=== PATIENT | male | born 1980 | race Caucasian/White ===

== ENCOUNTER 2024-11-11 16:16 | Emergency (ER) | payer OTHER, SELFPAY ==
[2024-11-11 16:25] VITALS: BP 156/100; PULSE 66; RESP 16; TEMP 37; O2SAT 97; BMI 27.8
--- NOTE | 2024-11-11 17:22 | ED_ITS ---
HPI - Extremity Problem General Chief complaint: Extremity Problem,Nontraumatic Stated complaint: states ingrown toenail Time Seen by Provider: 11/11/24 17:14 Source: patient History of Present Illness HPI Narrative: Mr. Bronson is a pleasant 43-year-old male who denies any past medical history that presents to the emergency department for bilateral ingrown x times 30 years. His toes have been hurting him more recently and yesterday his left great toenail started bleeding after he picked it which prompted his ED arrival. He reports that he is currently unhoused, has been for about the last 1.5 years, he grew up in [place] but has been spending majority of time in [place] but recently came to and [place]. He reports taking as best care of his feet as he can however his great toenails have been getting smaller and smaller and more and more painful. He denies any fevers or chills, he does notice some swelling of his bilateral lower legs and there is faint bleeding/drainage from the left great toenail. He denies any drug use, smoking or alcohol use. Patient was noted to be quite sleepy and a bit slow to respond however he reports that not used any drugs but he is extremely exhausted and tired due to living on the streets and not getting good sleep. Related Data Previous Rx's Medication Instructions Recorded acyclovir 800 mg tablet 800 mg PO BID #10 tabs 11/20/24 Allergies Allergy/AdvReac Type Severity Reaction Status Date / Time Tramadol Allergy Unknown Uncoded 11/19/24 18:28 Review of Systems Review of Systems ROS Unobtainable: All systems reviewed & are unremarkable except as noted in HPI and below Patient History Smoking Status: Never smoker Exam Narrative Exam Narrative: GENERAL: 43 year old patient appears stated age. Overweight patient, in no acute distress. HEAD: Atraumatic. Normocephalic. EYES: Extraocular motions intact. No scleral icterus. No injection or drainage. CARDIOVASCULAR: Regular rate RESPIRATORY: ?Nonlabored respirations. ?Speaking in clear, full sentences. EXTREMITIES: 1+ BL LE edema. Strong DP and PT pulses bilaterally, brisk capillary refill on the toes. There is onychomycosis of the bilateral toenails, most prominent on the bilateral great toes. Patient has tenderness to palpation of the medial great toenail lines bilaterally. He has an open wound on the medial left great toenail line with some dried bloody drainage. Mild erythema of the left great toe, no streaking erythema, purulent drainage or increased warmth. NEURO: Alert and oriented, provides clear competent history. He does fr equently fall asleep during exam, immediately wakes up when asked a question. Moves all 4 extremities appropriately. SKIN: No rashes. Initial Vital Signs Initial Vital Signs: Vital Signs Temperature 98.6 F 11/11/24 16:25 Pulse Rate 66 11/11/24 16:25 Respiratory Rate 16 11/11/24 16:25 Blood Pressure 156/100 H 11/11/24 16:25 Pulse Oximetry 97 11/11/24 16:25 Oxygen Delivery Method Room Air 11/11/24 16:25 Course Orders Ordered: Discontinued Medications Acetaminophen (Acetaminophen 325 Mg Tablet) 650 mg PO NOW ONE Stop: 11/11/24 17:43 Last Admin: 11/11/24 17:49 Dose: 650 mg Documented By: JENIFER Bacitracin (Bacitracin Oint 0.9 Gm Pckt) 2 applic TOP NOW ONE Stop: 11/11/24 17:43 Last Admin: 11/11/24 17:51 Dose: 2 applic Documented By: JENIFER Cephalexin HCl (Cephalexin 250 Mg Capsule) 500 mg PO NOW ONE Stop: 11/11/24 17:43 Last Admin: 11/11/24 17:53 Dose: 500 mg Documented By: JENIFER Ibuprofen (Ibuprofen 400 Mg Tablet) 400 mg PO NOW ONE Stop: 11/11/24 17:43 Last Admin: 11/11/24 17:52 Dose: 400 mg Documented By: JENIFER Vital Signs Vital signs: Vital Signs - 8 hr 11/11/24 16:25 Temperature 98.6 F Pulse Rate 66 Respiratory Rate 16 Blood Pressure 156/100 H Pulse Oximetry 97 Oxygen Delivery Method Room Air MDM - Extremity (Nontraumatic) Medical Records Medical records narrative: None available MDM Narrative Medical decision making narrative: 43-year-old male who denies any past medical history that presents to the emergency department for bilateral ingrown x times 30 years. Differential diagnosis includes but is not limited to onychomycosis, ingrown toenail, paronychia, cellulitis, open wound, etc. On exam patient is in no acute distress, nontoxic appearing, vital signs appropriate except for mildly elevated blood pressure. He does have significant onychomycosis of both great toes with very small nails. He attempted to remove left ingrown toenail himself so he therefore has an open wound that has some mild surrounding erythema. Discussed with the patient that due the chronicity of his ingrown toenails, do not believe it is appropriate to perform surgical ingrown toenail removal at this time, in addition his great toenails are actually extremely small and thickened and I do not feel the removal would be very successful. I am concerned that due to the open wound in his left toe, he is very high risk for developing infection, therefore both great toes were cleansed extensively with Betadine, bacitracin applied nonadherent dressing supplied in addition we will treat patient with course Keflex, discussed proper wound care, provided him with supplies. Social work will meet with the patient for community resources. Patient verbalized understanding of all information and is agreeable to the discharge plan, all questions answered, ED return precautions discussed, he is stable for discharge. Discharge Plan Departure Patient Disposition: Home Clinical Impression: Chronic toe pain, bilateral, Open wound of left great toe without damage to nail, Onychomycosis Instructions: DI for Ingrown Toenail, DI for Infected Ingrown Toenail Activity Restrictions/Additional Instructions: Dear Mr. Bronson, Today you were evaluated for ingrown toenails and found to have fungal disease of the toenails. I would like you to apply antibiotic ointment daily to both great toenails and also complete full course of oral antibiotics as I am concerned for the open wound on your left great toe. It is very important to see a non destructive testing inspector for further management of your ingrown toenails. Please call to schedule an appointment with [facility] [phone]. To ease discomfort and swelling: * Wear open-toed shoes or sandals. They can ease pressure on your toenail. * Soak your foot in warm, soapy water for 15 minutes. Do this 3 to 4 times a day. * Use an antibiotic ointment on your toe after you dry your foot. * Lift the edge of the toenail to place cotton packing or antibiotic ointment. Change the packing each day. * Keep your foot raised above your heart when resting. * Avoid activity that causes pain. Avoid bumps or extra pressure on your toenail. Please take Ibuprofen (Motrin/Advil) or Acetaminophen (Tylenol) for pain. These are available over the counter. You may take Ibuprofen 600 mg every 8 hours with food for pain. You may also take Acetaminophen 650 mg every 4-6 hours for pain. Do not exceed 3000 mg of Tylenol a day as this can cause liver damage. Do not drink alcohol with either of these medications. Please follow up with your primary care doctor within the next 2-3 days for ER follow-up. (If you do not have a PCP you can call [phone]. ?to schedule an appointment with an [facility] Primary Care Provider) IF YOU DEVELOP ANY NEW OR WORSENING SYMPTOMS, RETURN TO THE ER! Please read the attached instructions, they highlight more specific treatments and interventions for you at home. Thank you for letting me participate in your care, Judith Baker PA-C Prescriptions: No Action acyclovir 800 mg tablet 800 mg PO BID Qty: 10 0RF Stand Alone Forms: Patient Portal/API/Survey
[2024-11-11] MEDS: ACETAMINOPHEN 325 MG TABLET 650 MG PO (17:49)
[2024-11-11] MEDS: BACITRACIN OINT 0.9 GM PCKT 2 APPLIC TOP (17:51)
[2024-11-11] MEDS: IBUPROFEN 400 MG TABLET PO (17:52)
[2024-11-11] MEDS: cephALEXin 250 MG CAPSULE 500 MG PO (17:53)
--- NOTE | 2024-11-11 18:45 | CM.SWNOTE ---
ED PHARMACY ACCOUNT DIRECTOR Assessment Note: Pt is a 43yo male, unhoused in [place], [place] from [place], is seen in the ED for ingrown toenails. No PCP established, insurance is [employer]. Reviewed chart and discussed with multidisciplinary team pt's medical status and initial discharge needs. Per MI Baker, pt would benefit from PCP and Podiatry follow up if available/agreeable as well as community resources for houselessness to assist with keeping toes/feet as clean as possible. PHARMACY ACCOUNT DIRECTOR entered room to meet with patient, introduced self and role. Pt confirms he has been living in the [place] area, has been utilizing some services with the [facility]. ED PHARMACY ACCOUNT DIRECTOR discussed referrals to community coagulation operator, establishing with PCP, and transportation assistance. Pt presented with poverty of speech, very somnolent, but agreeable to community coagulation operator referral. Pt declined referral to PCP at this time. Pt agreeable to some bus passes. ED PHARMACY ACCOUNT DIRECTOR provided two [place] [employer] day-passes and completed [place] form for Community Nursing Education Specialist referral. PHARMACY ACCOUNT DIRECTOR reviews this with ED provider MI Baker who indicates agreement and understanding. Plan: Pt to discharge to community, will follow up with [facility], [facility] Community Nursing Education Specialist Program referral and [place] [employer] day passes. ROLF Aguilar
[2024-11-11 19:20] VITALS: BP 122/70; PULSE 81; RESP 16; TEMP 36.6; O2SAT 95
== END 2024-11-11 19:21 | disposition home or self-care (01) ==
PROVIDERS: Emergency Provider Physician Assistant
DX: S91.102A Unspecified open wound of left great toe without damage to nail, initial encounter (principal); B35.1 Tinea unguium; M79.675 Pain in left toe(s); M79.674 Pain in right toe(s)
CPT/HCPCS: 99283

== ENCOUNTER 2024-11-18 21:36 | Emergency (ER) | payer OTHER, SELFPAY ==
--- NOTE | 2024-11-18 21:53 | PC.NURSE ---
pt went immediately to bathroom after checking into department. after about 10 min, knocked on door to check on patient. He says he is ok, just pooping
[2024-11-18 22:10] VITALS: BP 152/87; PULSE 102; RESP 20; TEMP 36.6; O2SAT 96; BMI 38.6
--- NOTE | 2024-11-18 23:40 | PC.NURSE ---
pt here for a herpes outbreak wanting medication for the outbreak,
[2024-11-19 00:08] VITALS: PULSE 107; O2SAT 95
[2024-11-19 00:09] VITALS: BP 139/92
[2024-11-19 00:30] VITALS: PULSE 100; O2SAT 95
--- NOTE | 2024-11-19 00:30 | PC.NURSE ---
pt coming out of room yelling across to the nurses' station for things when asked to go back into his room pt stated you can just shut up, I'm not talking to you you aren't doing anything, I'm asking someone else
[2024-11-19 01:00] VITALS: PULSE 100; RESP 18; O2SAT 96
--- NOTE | 2024-11-19 01:18 | ED.SKABFB ---
HPI - Skin/Abscess/Foreign Bdy General Chief complaint: Skin/Abscess/Foreign Body Stated complaint: Will discuss with nurse Time Seen by Provider: 11/18/24 23:59 Source: patient Mode of arrival: Ambulatory Limitations: no limitations History of Present Illness HPI narrative: 43-year-old male complains of genital pain for the last 2 days, believes he has he has a recurrence of herpes, requests for evaluation treatment. Related Data Allergies Allergy/AdvReac Type Severity Reaction Status Date / Time Tramadol Allergy Unknown Uncoded 10/30/17 12:02 Patient History Social History Smoking Status: Never smoker Smoking Status: Never smoker Exam Narrative Exam Narrative: GENERAL:Well-developed patient, in mild distress. HEAD: Atraumatic. Normocephalic. EYES: Pupils equal round and reactive. Extraocular motions intact. No scleral icterus. No injection or drainage. ENT: Nose without bleeding, purulent drainage. Throat without erythema, tonsillar hypertrophy or exudate. Airway patent. NECK: Trachea midline. Non tender CARDIOVASCULAR: Regular rate and rhythm without murmurs, gallops, or rubs. RESPIRATORY: Clear to auscultation. Breath sounds equal bilaterally. No wheezes, rales, or rhonchi. GASTROINTESTINAL: Abdomen soft, non-tender, nondistended. EXTREMITIES: No edema or joint tenderness. BACK: Nontender without deformity or crepitance. No flank tenderness. NEURO: AOx3. Motor functions grossly nonfocal SKIN: No rash or erythema of visible areas Initial Vital Signs Initial Vital Signs: Vital Signs Temperature 97.8 F 11/18/24 22:10 Pulse Rate 102 H 11/18/24 22:10 Respiratory Rate 20 11/18/24 22:10 Blood Pressure 152/87 H 11/18/24 22:10 Pulse Oximetry 96 11/18/24 22:10 Oxygen Delivery Method Room Air 11/18/24 22:10 Course Orders Ordered: ED Orders 11/18/24 22:16 Consult to OPEN HEARTH LABORER - Printed Circuit Boards Solder Leveler Stat Vital Signs Vital signs: Vital Signs - 8 hr 11/18/24 22:10 11/19/24 00:08 11/19/24 00:09 Temperature 97.8 F Pulse Rate 102 H 107 H Respiratory Rate 20 Blood Pressure 152/87 H 139/92 H Pulse Oximetry 96 95 Oxygen Delivery Method Room Air 11/19/24 00:30 11/19/24 01:00 Temperature Pulse Rate 100 H 100 H Respiratory Rate 18 Blood Pressure Pulse Oximetry 95 96 Oxygen Delivery Method
--- NOTE | 2024-11-19 02:15 | PC.NURSE ---
gave pt a gown with instructions so that Dr Torres could examine pt
--- NOTE | 2024-11-19 02:30 | PC.NURSE ---
pt came to door yelling he would come back later he didn't want that doctor touching him, pt gathered his belongings and continued to yell as he walked out the door that he would be back later because he did not want that doctor touching him
--- NOTE | 2024-11-19 02:33 | ED_ITS ---
HPI - Skin/Abscess/Foreign Bdy General Chief complaint: Skin/Abscess/Foreign Body Stated complaint: Will discuss with nurse Time Seen by Provider: 11/18/24 23:59 Source: patient Mode of arrival: Ambulatory Limitations: no limitations History of Present Illness HPI narrative: 43-year-old male complains of genital herpes infection. He did not respond to requests to have him take down pants for genital examination. No physical examination was therefore done. I requested that he be changed into a gown for examination. He then eloped from the emergency department. That was the extent of the encounter. Eloped from the emergency department without participation with medical screening exam. Related Data Allergies Allergy/AdvReac Type Severity Reaction Status Date / Time Tramadol Allergy Unknown Uncoded 10/30/17 12:02 Patient History Social History Smoking Status: Never smoker Smoking Status: Never smoker Exam Initial Vital Signs Initial Vital Signs: Vital Signs Temperature 97.8 F 11/18/24 22:10 Pulse Rate 102 H 11/18/24 22:10 Respiratory Rate 20 11/18/24 22:10 Blood Pressure 152/87 H 11/18/24 22:10 Pulse Oximetry 96 11/18/24 22:10 Oxygen Delivery Method Room Air 11/18/24 22:10 Course Orders Ordered: ED Orders 11/18/24 22:16 Consult to COMMERCIAL RELATIONSHIP MANAGER - Stock Wetter Stat Vital Signs Vital signs: Vital Signs - 8 hr 11/18/24 22:10 11/19/24 00:08 11/19/24 00:09 Temperature 97.8 F Pulse Rate 102 H 107 H Respiratory Rate 20 Blood Pressure 152/87 H 139/92 H Pulse Oximetry 96 95 Oxygen Delivery Method Room Air 11/19/24 00:30 11/19/24 01:00 Temperature Pulse Rate 100 H 100 H Respiratory Rate 18 Blood Pressure Pulse Oximetry 95 96 Oxygen Delivery Method
--- NOTE | 2024-11-19 02:43 | ED.SKABFB ---
HPI - Skin/Abscess/Foreign Bdy General Chief complaint: Skin/Abscess/Foreign Body Stated complaint: Will discuss with nurse Time Seen by Provider: 11/18/24 23:59 Source: patient Mode of arrival: Ambulatory Limitations: no limitations Related Data Allergies Allergy/AdvReac Type Severity Reaction Status Date / Time Tramadol Allergy Unknown Uncoded 10/30/17 12:02 Patient History Social History Smoking Status: Never smoker Smoking Status: Never smoker Exam Initial Vital Signs Initial Vital Signs: Vital Signs Temperature 97.8 F 11/18/24 22:10 Pulse Rate 102 H 11/18/24 22:10 Respiratory Rate 20 11/18/24 22:10 Blood Pressure 152/87 H 11/18/24 22:10 Pulse Oximetry 96 11/18/24 22:10 Oxygen Delivery Method Room Air 11/18/24 22:10 Course Orders Ordered: ED Orders 11/18/24 22:16 Consult to CHEMICAL APPLICATOR - Tanning Drum Operator Stat Vital Signs Vital signs: Vital Signs - 8 hr 11/18/24 22:10 11/19/24 00:08 11/19/24 00:09 Temperature 97.8 F Pulse Rate 102 H 107 H Respiratory Rate 20 Blood Pressure 152/87 H 139/92 H Pulse Oximetry 96 95 Oxygen Delivery Method Room Air 11/19/24 00:30 11/19/24 01:00 Temperature Pulse Rate 100 H 100 H Respiratory Rate 18 Blood Pressure Pulse Oximetry 95 96 Oxygen Delivery Method Discharge Plan Departure Patient Disposition: Elopement Clinical Impression: Genital sore Activity Restrictions/Additional Instructions: Patient eloped from the emergency department without participation in physical exam or completion of medical screening exam, when he was requested to pulled down his pants for examination. He was requested to change into a gown, then he eloped from the emergency department.
== END 2024-11-19 02:50 | disposition left against medical advice (07) ==
PROVIDERS: Emergency Provider Emergency Medicine
CPT/HCPCS: 99281

== ENCOUNTER 2024-11-19 18:15 | Emergency (ER) | payer OTHER, SELFPAY ==
[2024-11-19 18:22] VITALS: BP 147/89; PULSE 88; RESP 16; TEMP 36.6; O2SAT 95; BMI 37.8
--- NOTE | 2024-11-19 22:30 | PC.NURSE ---
Pt reports history of genital herpes. feels like an outbreak is occuring.
--- NOTE | 2024-11-20 01:35 | ED.MALEGU ---
HPI - Male Genitourinary General Chief complaint: Urogenital-Male Stated complaint: Will Discuss with nurse Time Seen by Provider: 11/19/24 22:17 Source: patient Mode of arrival: Ambulatory History of Present Illness HPI Narrative: 43-year-old gentleman presents with request for her be simplex to treatment to his penis that broke out a few days ago and also treatment for his chronic toe pain bilateral onychomycosis for which he was seen in late October but apparently the prescription was sent to [facility] and he is unable to travel to obtain the medicines there as he is not able to arrange transportation. Other than what is stated 14 point review of system is negative Related Data Previous Rx's Medication Instructions Recorded acyclovir 800 mg tablet 800 mg PO BID #10 tabs 11/20/24 cephalexin 500 mg capsule 500 mg PO Q6H 7 days #28 caps 11/20/24 Allergies Allergy/AdvReac Type Severity Reaction Status Date / Time Tramadol Allergy Unknown Uncoded 11/19/24 18:28 Review of Systems Review of Systems ROS Unobtainable: All systems reviewed & are unremarkable except as noted in HPI and below Patient History Smoking Status: Never smoker Exam Narrative Exam Narrative: GENERAL: [44] year old patient appears stated age. Well-developed patient, in mild distress. HEAD: Atraumatic. Normocephalic. EYES: Pupils equal round and reactive. Extraocular motions intact. No scleral icterus. No injection or drainage. ENT: Nose without bleeding, purulent drainage. Throat without erythema, tonsillar hypertrophy or exudate. Airway patent. NECK: Trachea midline. Non tender CARDIOVASCULAR: Regular rate and rhythm without murmurs, gallops, or rubs. RESPIRATORY: Clear to auscultation. Breath sounds equal bilaterally. No wheezes, rales, or rhonchi. GASTROINTESTINAL: Abdomen soft, non-tender, nondistended. EXTREMITIES: B/l l/e edema +1, +2 DP b/l l/e , +2PT b/l l/e Onychomycosis b/l toe nail. Open wound of medial left great toe, mild erythema and warmth no streaking, no fluctuance seen, : Circumsized with herpetic lesions on glans of penis and shaft BACK: Nontender without deformity or crepitance. No flank tenderness. NEURO: AOx3. SKIN: No rash or erythema of visible areas Initial Vital Signs Initial Vital Signs: Vital Signs Temperature 98 F 11/19/24 18:22 Pulse Rate 88 11/19/24 18:22 Respiratory Rate 16 11/19/24 18:22 Blood Pressure 147/89 H 11/19/24 18:22 Pulse Oximetry 95 11/19/24 18:22 Oxygen Delivery Method Room Air 11/19/24 18:22 Course Vital Signs Vital signs: Vital Signs - 8 hr 11/19/24 18:22 Temperature 98 F Pulse Rate 88 Respiratory Rate 16 Blood Pressure 147/89 H Pulse Oximetry 95 Oxygen Delivery Method Room Air MDM - Male Genitourinary MDM Narrative Medical decision making narrative: Patient given acyclovir and cephalexin here. Differential diagnosis includes herpes STD gonorrhea chlamydia Trichomonas UTI cellulitis MRSA onychomycosis. Vital signs, nurse triage note, medication list, all imaging studies and all previous records reviewed. Discharge Plan Departure Patient Disposition: Home Clinical Impression: Open wound of left great toe without damage to nail, Genital herpes simplex Activity Restrictions/Additional Instructions: Return with new or worsening symptoms. Take your medicines as directed. Follow up PCP in 1-2 weeks if no improvement in symptoms. Prescriptions: New cephalexin 500 mg capsule 500 mg PO Q6H 7 Days Qty: 28 0RF acyclovir 800 mg tablet 800 mg PO BID Qty: 10 0RF Stand Alone Forms: Patient Portal/API/Survey
[2024-11-20] MEDS: cephALEXin 250 MG CAPSULE 500 MG PO (01:47)
[2024-11-20] MEDS: ACYCLOVIR 400 MG TABLET 800 MG PO (01:47)
[2024-11-20 02:07] VITALS: BP 142/82; PULSE 88; RESP 16; O2SAT 100
== END 2024-11-20 02:19 | disposition home or self-care (01) ==
PROVIDERS: Emergency Provider Family Medicine
DX: A60.01 Herpesviral infection of penis (principal); B35.1 Tinea unguium; S91.102A Unspecified open wound of left great toe without damage to nail, initial encounter; X58.XXXA Exposure to other specified factors, initial encounter
CPT/HCPCS: 99283

== ENCOUNTER 2024-12-01 10:01 | Emergency (ER) | payer OTHER, SELFPAY | END 2024-12-01 10:48 | disposition left against medical advice (07) | PROVIDERS: Emergency Provider Emergency Medicine | DX: K08.89 Other specified disorders of teeth and supporting structures (principal) ==

== ENCOUNTER 2024-12-01 11:12 | Emergency (ER) | payer OTHER, SELFPAY ==
[2024-12-01 11:38] VITALS: BP 158/92; PULSE 95; RESP 16; TEMP 37.1; O2SAT 98; BMI 37.6
--- NOTE | 2024-12-01 12:14 | PC.NURSE ---
L leg noted to have increasing redness and swelling. L great toe appears infected. 1+ pitting edema to L leg. pt has been wrapping with bandaids. Advised to leave open to air at night so skin does not stay wet. educated on how to clean appropriately. Pt reports that he does not want to stay in the hospital. Has been prescribed antibiotics multiple times and has not taken them or gone to the pharmacy to pick them up. Meal tray given to patient. provided with food and drink. Toe dressed with gauze. No new orders from provider at this time
--- NOTE | 2024-12-01 12:28 | PC.NURSE ---
[facility] [employer] [facility] with phone numbers and given to patient
--- NOTE | 2024-12-01 15:04 | ED_ITS ---
HPI - Skin/Abscess/Foreign Bdy <Darion Ladd PA-C - Last Filed: 12/01/24 15:09> General Chief complaint: Skin/Abscess/Foreign Body Stated complaint: Tooth pain, ingrown toe nail big toe Time Seen by Provider: 12/01/24 11:52 History of Present Illness HPI narrative: 44-year-old undomiciled male presents to the ED for left-sided big toe pain. Patient has been seen twice before in the ED here recently for the same complaint and has been prescribed antibiotics. Patient states that he was not able to pick up attendant his antibiotics. Patient denies fever, chills, chest pain, shortness of breath, nausea, vomiting, numbness, tingling, weakness. Patient complains of pain in that left toe. Related Data Previous Rx's Medication Instructions Recorded acyclovir 800 mg tablet 800 mg PO BID #10 tabs 11/20/24 sulfamethoxazole 800 2 tab PO Q12H 14 days #56 tabs 12/01/24 mg-trimethoprim 160 mg tablet (Bactrim DS) Allergies Allergy/AdvReac Type Severity Reaction Status Date / Time Tramadol Allergy Unknown Uncoded 11/19/24 18:28 Review of Systems <Darion Ladd PA-C - Last Filed: 12/01/24 15:09> Constitutional Constitutional: Denies chills, Denies fatigue, Denies fever(s), Denies frequent falls, Denies lethargy and Denies weakness Eyes Eyes: Denies change in vision, Denies eye discharge, Denies irritation and Denies loss of vision ENT Ears, Nose, Mouth, and Throat: Denies change in voice, Denies dizziness, Denies neck pain, Denies sore throat and Denies throat swelling Cardiovascular Cardiovascular: Denies chest pain, Denies irregular heart rhythm, Denies lightheadedness, Denies palpitations, Denies dyspnea, Denies dyspnea on exertion and Denies orthopnea Respiratory Respiratory: Denies cough, Denies dyspnea, Denies dyspnea on exertion and Denies wheezing Gastrointestinal Gastrointestinal: Denies abdominal pain, Denies change in bowel habits, Denies diarrhea, Denies nausea and Denies vomiting Musculoskeletal Musculoskeletal: Denies neck pain and Denies numbness Integumentary/Breasts Skin/Breast: Denies pruritus, Denies erythema, Denies rash and Denies wounds Comments: Left big toe pain Neurologic Neurologic: Denies behavioral changes, Denies confusion, Denies dizziness, Denies frequent falls, Denies loss of vision, Denies numbness and Denies weakness Psychiatric Psychiatric: Denies anxiety, Denies behavioral changes, Denies confusion, Denies depression, Denies homicidal ideation and Denies suicidal ideation Endocrine Endocrine: Denies fatigue, Denies flushing and Denies palpitations Hematologic/Lymphatic Hematologic/Lymphatic: Denies easy bruising Allergic/Immunologic Allergic/Immunologic: Denies urticaria, Denies throat swelling and Denies wheezing Exam <Darion Ladd PA-C - Last Filed: 12/01/24 15:09> Narrative Exam Narrative: Const General:?cooperative, healthy appearing and comfortable HENDC Head:?normal to inspection Ears:?hearing grossly normal bilaterally Nose:?external nose normal Face and sinus:?normal facial exam and sinuses nontender Mouth:?oral mucosae normal Throat:?posterior oropharynx normal Eyes General:?appearance normal, both eyes and all related structures Neck Neck:?normal visual inspection and no lymphadenopathy noted Resp Effort & Inspection:?normal respiratory effort Auscultation:?clear to auscultation bilaterally Cardio Rate:?regular rate Rhythm:?regular rhythm Integumentary There is a wound to the left big toe with mild erythema and tenderness to palpation. No streaking. No purulence. Also onychomycosis of the big toe nail. Neurovascularly intact. Neuro General:?patient alert, patient awake and patient oriented x3 Initial Vital Signs Initial Vital Signs: Vital Signs Temperature 98.8 F 12/01/24 11:38 Pulse Rate 95 H 12/01/24 11:38 Respiratory Rate 16 12/01/24 11:38 Blood Pressure 158/92 H 12/01/24 11:38 Pulse Oximetry 98 12/01/24 11:38 Oxygen Delivery Method Room Air 12/01/24 11:38 <Francisco Javier Forrest MD - Last Filed: 12/01/24 16:50> Initial Vital Signs Initial Vital Signs: Vital Signs Temperature 98.8 F 12/01/24 11:38 Pulse Rate 95 H 12/01/24 11:38 Respiratory Rate 16 12/01/24 11:38 Blood Pressure 158/92 H 12/01/24 11:38 Pulse Oximetry 98 12/01/24 11:38 Oxygen Delivery Method Room Air 12/01/24 11:38 Course <Darion Ladd PA-C - Last Filed: 12/01/24 15:09> Orders Ordered: ED Orders 12/01/24 11:50 Wound Culture and Gram Stain Stat Vital Signs Vital signs: Vital Signs - 8 hr 12/01/24 11:38 Temperature 98.8 F Pulse Rate 95 H Respiratory Rate 16 Blood Pressure 158/92 H Pulse Oximetry 98 Oxygen Delivery Method Room Air <Francisco Javier Forrest MD - Last Filed: 12/01/24 16:50> Orders Ordered: ED Orders 12/01/24 11:50 Wound Culture and Gram Stain Stat Vital Signs Vital signs: Vital Signs - 8 hr 12/01/24 11:38 Temperature 98.8 F Pulse Rate 95 H Respiratory Rate 16 Blood Pressure 158/92 H Pulse Oximetry 98 Oxygen Delivery Method Room Air MDM - Skin/Abscess/Foreign Bdy <Darion Ladd PA-C - Last Filed: 12/01/24 15:09> MDM Narrative Medical decision making narrative: 44-year-old male presents to the ED for left-sided big toe pain. Physical exam is consistent with onychomycosis with an open wound to the left toe. Discussed that patient will need to take antibiotics. Patient would like the antibiotics sent to [facility]. Antibiotics prescribed. ED return precautions discussed with patient. Patient verbalized understanding. Medical records reviewed: Yes Discharge Plan Departure Patient Disposition: Home Clinical Impression: Cellulitis Instructions: DI for Cellulitis -- Adult Activity Restrictions/Additional Instructions: You were evaluated in the ED today for a left big toe infection. You are being prescribed antibiotics for it. Please take them as prescribed. The antibiotics have been sent to [facility]. It is advised that you follow-up with a clinical assessment manager for further evaluation and treatment. Please return to the ED if you have worsening symptoms. Prescriptions: New sulfamethoxazole-trimethoprim [Bactrim DS] 800-160 mg tablet 2 tab PO Q12H 14 Days Qty: 56 0RF No Action acyclovir 800 mg tablet 800 mg PO BID Qty: 10 0RF Stand Alone Forms: Patient Portal/API/Survey ED Sign-out <Francisco Javier Forrest MD - Last Filed: 12/01/24 16:50> Cosign ED Attending Cosignature Attestation: I was immediately available in the department for consultation. ?This documentation has been reviewed and I agree with assessment and plan. Supervised by Francisco Javier Forrest MD
== END 2024-12-01 12:53 | disposition home or self-care (01) ==
PROVIDERS: Emergency Provider Student in an Organized Health Care Education/Training Program
DX: L03.032 Cellulitis of left toe (principal)
CPT/HCPCS: 87070; 87075; 87077; 87147; 87186; 87205; 99281; 99282